=== PATIENT | male | born 1955 | race African-American/Black ===

== ENCOUNTER 2018-04-20 16:26 | Inpatient (IN) | payer MEDICARE, OTHER ==
[~2018-04-20] VITALS: Ht 193 cm; Wt 53.5 kg
[2018-04-20 19:40] VITALS: BP 113/71
[2018-04-20] MEDS ORDERED: ACETAMINOPHEN 325 MG TABLET PO PRN (20:00)
[2018-04-20] MEDS ORDERED: DOCUSATE SODIUM 283 MG/5 ML MINI-ENEMA PR PRN (20:00)
[2018-04-20] MEDS ORDERED: *NON-FORMULARY MED [ENTER DRUG, DOSE, FREQ IN COMMENTS] CLINICAL ONE ×2 (20:30)
[2018-04-20] MEDS ORDERED: SENNA 187 MG TABLET PO SCH (21:00)
[2018-04-20] MEDS: DOCUSATE SODIUM 100 MG CAPSULE PO SCH (22:10)
[2018-04-20] MEDS: GABAPENTIN 300 MG CAPSULE PO SCH (22:11)
[2018-04-20] MEDS: ATORVASTATIN CALCIUM 20 MG TABLET PO SCH (22:12)
[2018-04-20 23:04] LABS: GLUCOMETER DEV NAME(LOC) 2WR.2; GLUCOSE,POINT OF CARE 144 MG/DL (70-110)
[2018-04-20] MEDS: ISOSORBIDE DINITRATE 10 MG TABLET PO SCH (23:41)
[2018-04-20 23:42] VITALS: BP 122/64
[2018-04-20] MEDS: HydrALAZINE HCL 25 MG TABLET PO SCH (23:42)
[2018-04-21] VITALS: BP 122/66
[2018-04-21 06:25] LABS: GLUCOMETER DEV NAME(LOC) 2WR.2; GLUCOSE,POINT OF CARE 109 MG/DL (70-110)
[2018-04-21 07:00] LABS: BASOPHILS % (AUTO) 0.8 % (0.0-2.0); EOSINOPHILS % (AUTO) 2.5 % (1.0-6.0); HEMOGLOBIN 11.7 g/dL (13.5-17.5); LYMPHOCYTES # (AUTO) 2.2 K/uL (1.0-4.8); LYMPHOCYTES % (AUTO) 25.6 % (22.0-44.0); MEAN CORPUSCULAR HGB CONC 33.6 G/dL (31.0-37.0); MEAN CORPUSCULAR VOLUME 81 fL (80-100); MONOCYTES # (AUTO) 0.8 K/uL (0.1-1.0); MONOCYTES % (AUTO) 9.2 % (2.0-9.0); NEUTROPHILS # (AUTO) 5.4 K/uL (1.8-7.7); NEUTROPHILS % (AUTO) 61.9 % (40.0-70.0); PLATELET COUNT (AUTO) 182 K/uL (150-450); RED BLOOD CELL COUNT(AUTO) 4.34 MIL/uL (4.50-5.90); RED CELL DISTRIBUTION WIDTH 21.9 % (11.5-14.5)
[2018-04-21 07:12] LABS: ALBUMIN 2.5 g/dL (3.4-5.0); BILIRUBIN,TOTAL 1.1 mg/dL (0.1-1.0); CALCIUM, TOTAL 8.8 mg/dL (8.8-10.5); CREATININE 1.54 mg/dL (0.60-1.30); TOTAL PROTEIN, SERUM 6.2 g/dL (6.4-8.2)
[2018-04-21 08:00] VITALS: BP 129/79
[2018-04-21] MEDS: MULTIVITAMINS WITH MINERALS, THERAPEUTIC TABLET PO SCH (08:05)
[2018-04-21] MEDS: LOSARTAN POTASSIUM 25 MG TABLET PO SCH (08:05)
[2018-04-21] MEDS: BUMETANIDE 1 MG TABLET PO SCH (08:05)
[2018-04-21] MEDS: ISOSORBIDE DINITRATE 10 MG TABLET PO SCH ×3 (08:05→23:58)
[2018-04-21] MEDS: CARVEDILOL 6.25 MG TABLET PO SCH ×2 (08:05→17:00)
[2018-04-21] MEDS: HydrALAZINE HCL 25 MG TABLET PO SCH ×3 (08:05→23:58)
[2018-04-21] MEDS: DOLUTEGRAVIR SODIUM 50 MG TABLET PO SCH (08:05)
[2018-04-21] MEDS: COBICISTAT PO SCH (08:06)
[2018-04-21] MEDS: GABAPENTIN 300 MG CAPSULE PO SCH ×2 (08:06→20:22)
[2018-04-21] MEDS: TAMSULOSIN HCL 0.4 MG CAPSULE PO SCH (08:06)
[2018-04-21] MEDS: ASPIRIN 81 MG EC TABLET PO SCH (08:06)
[2018-04-21] MEDS: DOCUSATE SODIUM 100 MG CAPSULE PO SCH (08:06)
[2018-04-21] MEDS: DARUNAVIR PO SCH (08:06)
[2018-04-21] MEDS: EMTRICITABINE PO SCH (08:07)
[2018-04-21] MEDS: TENOFOVIR ALAFENAMIDE PO SCH (08:07)
[2018-04-21] MEDS: MARAVIROC 150 MG PO SCH (08:08)
[2018-04-21] MEDS ORDERED: DEXTROSE 50%-WATER 25 GM/50 ML SYRINGE IVP PRN (13:00)
[2018-04-21] MEDS: ASCORBIC ACID 500 MG TABLET PO SCH (13:12)
[2018-04-21 13:19] LABS: GLUCOMETER DEV NAME(LOC) 2WR.2; GLUCOSE,POINT OF CARE 173 MG/DL (70-110)
[2018-04-21] MEDS: ZINC SULFATE 220 MG CAPSULE PO SCH (14:16)
[2018-04-21 14:37] LABS: MAGNESIUM 2.1 mg/dL (1.80-2.40); PHOSPHORUS 4.2 mg/dL (2.5-4.9)
[2018-04-21 16:01] VITALS: BP 100/57
[2018-04-21] MEDS: INSULIN LISPRO 100 UNITS/ML SQ PRN (17:43)
[2018-04-21 18:59] LABS: GLUCOMETER DEV NAME(LOC) 2WR.1; GLUCOSE,POINT OF CARE 228 MG/DL (70-110)
[2018-04-21] MEDS: SENNA 187 MG TABLET PO SCH (20:22)
[2018-04-21] MEDS: DOCUSATE SODIUM 250 MG CAPSULE PO SCH (20:22)
[2018-04-21] MEDS: ATORVASTATIN CALCIUM 20 MG TABLET PO SCH (20:22)
[2018-04-22] VITALS (8 sets, daily range): BP systolic 80–111; BP diastolic 50–68
[2018-04-22 06:14] LABS: GLUCOMETER DEV NAME(LOC) 2WR.2; GLUCOSE,POINT OF CARE 129 MG/DL (70-110)
[2018-04-22] MEDS: HydrALAZINE HCL 25 MG TABLET PO SCH ×3 (08:14→20:10)
[2018-04-22] MEDS: TAMSULOSIN HCL 0.4 MG CAPSULE PO SCH (08:14)
[2018-04-22] MEDS: ASPIRIN 81 MG EC TABLET PO SCH (08:14)
[2018-04-22] MEDS: DOLUTEGRAVIR SODIUM 50 MG TABLET PO SCH (08:14)
[2018-04-22] MEDS: GABAPENTIN 300 MG CAPSULE PO SCH ×2 (08:14→20:11)
[2018-04-22] MEDS: BUMETANIDE 1 MG TABLET PO SCH (08:14)
[2018-04-22] MEDS: MULTIVITAMINS WITH MINERALS, THERAPEUTIC TABLET PO SCH (08:14)
[2018-04-22] MEDS: ASCORBIC ACID 500 MG TABLET PO SCH (08:14)
[2018-04-22] MEDS: ZINC SULFATE 220 MG CAPSULE PO SCH (08:14)
[2018-04-22] MEDS: ISOSORBIDE DINITRATE 10 MG TABLET PO SCH ×3 (08:14→20:10)
[2018-04-22] MEDS: CARVEDILOL 6.25 MG TABLET PO SCH ×2 (08:14→15:46)
[2018-04-22] MEDS: POLYETHYLENE GLYCOL 3350 17 GM PACKET PO SCH (08:15)
[2018-04-22] MEDS: MARAVIROC 150 MG PO SCH (08:15)
[2018-04-22] MEDS: DARUNAVIR PO SCH (08:15)
[2018-04-22] MEDS: DOCUSATE SODIUM 250 MG CAPSULE PO SCH ×2 (08:15→20:11)
[2018-04-22] MEDS: COBICISTAT PO SCH (08:15)
[2018-04-22] MEDS: LOSARTAN POTASSIUM 25 MG TABLET PO SCH (09:00)
[2018-04-22] MEDS: EMTRICITABINE PO SCH (10:39)
[2018-04-22] MEDS: TENOFOVIR ALAFENAMIDE PO SCH (10:39)
[2018-04-22] MEDS ORDERED: MAGNESIUM HYDROXIDE SUSPENSION 30 ML UDCUP PO PRN (11:30)
[2018-04-22] MEDS: FERROUS GLUCONATE 324 MG TABLET PO SCH (12:53)
[2018-04-22] MEDS ORDERED: HydrALAZINE HCL 25 MG TABLET PO SCH (16:00)
[2018-04-22 17:45] LABS: GLUCOMETER DEV NAME(LOC) 2WR.2; GLUCOSE,POINT OF CARE 270 MG/DL (70-110)
[2018-04-22] MEDS: INSULIN LISPRO 100 UNITS/ML SQ PRN (17:51)
[2018-04-22] MEDS: ATORVASTATIN CALCIUM 20 MG TABLET PO SCH (20:11)
[2018-04-22] MEDS: SENNA 187 MG TABLET PO SCH (20:11)
[2018-04-23] VITALS: BP 101/53
[2018-04-23] MEDS ORDERED: ASPI-1182 PO (01:39)
[2018-04-23] MEDS ORDERED: DOLU50TA PO (01:39)
[2018-04-23] MEDS ORDERED: EMTR1TAB13 PO (01:39)
[2018-04-23] MEDS ORDERED: DARU1TAB PO (01:39)
[2018-04-23] MEDS ORDERED: AMLO-512 PO (01:39)
[2018-04-23] MEDS ORDERED: TAMS0.4C32 PO (01:39)
[2018-04-23] MEDS ORDERED: LOSA1TAB37 PO (01:39)
[2018-04-23] MEDS ORDERED: MARA150T PO (01:39)
[2018-04-23 06:45] LABS: GLUCOMETER DEV NAME(LOC) 2WR.2; GLUCOSE,POINT OF CARE 132 MG/DL (70-110)
[2018-04-23] MEDS: CARVEDILOL 6.25 MG TABLET PO SCH ×2 (07:30→16:47)
[2018-04-23 07:40] VITALS: BP 124/80
[2018-04-23] MEDS: DOLUTEGRAVIR SODIUM 50 MG TABLET PO SCH (08:14)
[2018-04-23] MEDS: ZINC SULFATE 220 MG CAPSULE PO SCH (08:14)
[2018-04-23] MEDS: BUMETANIDE 1 MG TABLET PO SCH (08:14)
[2018-04-23] MEDS: COBICISTAT PO SCH (08:14)
[2018-04-23] MEDS: DARUNAVIR PO SCH (08:14)
[2018-04-23] MEDS: DOCUSATE SODIUM 250 MG CAPSULE PO SCH ×2 (08:15→20:13)
[2018-04-23] MEDS: HydrALAZINE HCL 25 MG TABLET PO SCH ×4 (08:15→21:00)
[2018-04-23] MEDS: GABAPENTIN 300 MG CAPSULE PO SCH ×2 (08:16→20:13)
[2018-04-23] MEDS: ASCORBIC ACID 500 MG TABLET PO SCH (08:17)
[2018-04-23] MEDS: FERROUS GLUCONATE 324 MG TABLET PO SCH (08:17)
[2018-04-23] MEDS: ISOSORBIDE DINITRATE 10 MG TABLET PO SCH ×3 (08:17→20:13)
[2018-04-23] MEDS: TAMSULOSIN HCL 0.4 MG CAPSULE PO SCH (08:17)
[2018-04-23] MEDS: MULTIVITAMINS WITH MINERALS, THERAPEUTIC TABLET PO SCH (08:18)
[2018-04-23] MEDS: ASPIRIN 81 MG EC TABLET PO SCH (08:18)
[2018-04-23] MEDS: MARAVIROC 150 MG PO SCH (08:19)
[2018-04-23] MEDS: EMTRICITABINE PO SCH (08:20)
[2018-04-23] MEDS: TENOFOVIR ALAFENAMIDE PO SCH (08:20)
[2018-04-23] MEDS: POLYETHYLENE GLYCOL 3350 17 GM PACKET PO SCH (08:42)
[2018-04-23] MEDS ORDERED: DENTURE ADHESIVE 68 GM CREAM DT PRN (11:15)
[2018-04-23 16:09] VITALS: BP 104/56
[2018-04-23 17:34] LABS: GLUCOMETER DEV NAME(LOC) 2WR.1; GLUCOSE,POINT OF CARE 173 MG/DL (70-110)
[2018-04-23] MEDS: INSULIN LISPRO 100 UNITS/ML SQ PRN (17:43)
[2018-04-23 20:09] VITALS: BP 117/63
[2018-04-23] MEDS: SENNA 187 MG TABLET PO SCH (20:13)
[2018-04-23] MEDS: ATORVASTATIN CALCIUM 20 MG TABLET PO SCH (20:13)
[2018-04-23 21:16] VITALS: BP 99/57
[2018-04-24 05:00] VITALS: BP 120/61
[2018-04-24 05:49] LABS: GLUCOMETER DEV NAME(LOC) 2WR.1; GLUCOSE,POINT OF CARE 127 MG/DL (70-110)
[2018-04-24 07:48] VITALS: BP 129/70
[2018-04-24] MEDS: GABAPENTIN 300 MG CAPSULE PO SCH ×2 (08:01→20:37)
[2018-04-24] MEDS: DOCUSATE SODIUM 250 MG CAPSULE PO SCH ×2 (08:01→20:37)
[2018-04-24] MEDS: ASCORBIC ACID 500 MG TABLET PO SCH (08:02)
[2018-04-24] MEDS: ZINC SULFATE 220 MG CAPSULE PO SCH (08:02)
[2018-04-24] MEDS: MULTIVITAMINS WITH MINERALS, THERAPEUTIC TABLET PO SCH (08:02)
[2018-04-24] MEDS: FERROUS GLUCONATE 324 MG TABLET PO SCH (08:05)
[2018-04-24] MEDS: BUMETANIDE 1 MG TABLET PO SCH (08:05)
[2018-04-24] MEDS: ISOSORBIDE DINITRATE 10 MG TABLET PO SCH ×3 (08:05→20:37)
[2018-04-24] MEDS: TAMSULOSIN HCL 0.4 MG CAPSULE PO SCH (08:05)
[2018-04-24] MEDS: CARVEDILOL 6.25 MG TABLET PO SCH ×2 (08:05→17:00)
[2018-04-24] MEDS: MARAVIROC 150 MG PO SCH (08:06)
[2018-04-24] MEDS: DOLUTEGRAVIR SODIUM 50 MG TABLET PO SCH (08:06)
[2018-04-24] MEDS: EMTRICITABINE PO SCH (08:09)
[2018-04-24] MEDS: TENOFOVIR ALAFENAMIDE PO SCH (08:09)
[2018-04-24] MEDS: POLYETHYLENE GLYCOL 3350 17 GM PACKET PO SCH (08:10)
[2018-04-24] MEDS: HydrALAZINE HCL 25 MG TABLET PO SCH ×3 (08:10→20:36)
[2018-04-24] MEDS: ASPIRIN 81 MG EC TABLET PO SCH (08:13)
[2018-04-24] MEDS: COBICISTAT PO SCH (08:15)
[2018-04-24] MEDS: DARUNAVIR PO SCH (08:15)
[2018-04-24] MEDS: CHLORHEXIDINE GLUCONATE 4% 118 ML TOPICAL LIQUID TP SCH (08:16)
[2018-04-24 16:09] VITALS: BP 98/52
[2018-04-24] MEDS: INSULIN LISPRO 100 UNITS/ML SQ PRN (17:37)
[2018-04-24 17:39] LABS: GLUCOMETER DEV NAME(LOC) 2WR.2; GLUCOSE,POINT OF CARE 171 MG/DL (70-110)
[2018-04-24 20:34] VITALS: BP 93/59
[2018-04-24] MEDS: SENNA 187 MG TABLET PO SCH (20:37)
[2018-04-24] MEDS: ATORVASTATIN CALCIUM 20 MG TABLET PO SCH (20:37)
[2018-04-25 04:45] VITALS: BP 132/73
[2018-04-25 06:25] LABS: GLUCOMETER DEV NAME(LOC) 2WR.1; GLUCOSE,POINT OF CARE 123 MG/DL (70-110)
[2018-04-25 07:30] VITALS: BP 145/76
[2018-04-25] MEDS: TAMSULOSIN HCL 0.4 MG CAPSULE PO SCH (08:17)
[2018-04-25] MEDS: MULTIVITAMINS WITH MINERALS, THERAPEUTIC TABLET PO SCH (08:17)
[2018-04-25] MEDS: BUMETANIDE 1 MG TABLET PO SCH (08:17)
[2018-04-25] MEDS: EMTRICITABINE PO SCH (08:17)
[2018-04-25] MEDS: ZINC SULFATE 220 MG CAPSULE PO SCH (08:17)
[2018-04-25] MEDS: TENOFOVIR ALAFENAMIDE PO SCH (08:17)
[2018-04-25] MEDS: DOLUTEGRAVIR SODIUM 50 MG TABLET PO SCH (08:17)
[2018-04-25] MEDS: MARAVIROC 150 MG PO SCH (08:17)
[2018-04-25] MEDS: FERROUS GLUCONATE 324 MG TABLET PO SCH (08:18)
[2018-04-25] MEDS: ISOSORBIDE DINITRATE 10 MG TABLET PO SCH ×3 (08:18→20:52)
[2018-04-25] MEDS: GABAPENTIN 300 MG CAPSULE PO SCH ×2 (08:18→20:51)
[2018-04-25] MEDS: DOCUSATE SODIUM 250 MG CAPSULE PO SCH ×2 (08:18→20:52)
[2018-04-25] MEDS: ASCORBIC ACID 500 MG TABLET PO SCH (08:18)
[2018-04-25] MEDS: ASPIRIN 81 MG EC TABLET PO SCH (08:18)
[2018-04-25] MEDS: CARVEDILOL 6.25 MG TABLET PO SCH ×2 (08:18→17:00)
[2018-04-25] MEDS: DARUNAVIR PO SCH (08:19)
[2018-04-25] MEDS: POLYETHYLENE GLYCOL 3350 17 GM PACKET PO SCH (08:19)
[2018-04-25] MEDS: COBICISTAT PO SCH (08:19)
[2018-04-25] MEDS: HydrALAZINE HCL 25 MG TABLET PO SCH ×3 (09:00→20:54)
[2018-04-25 12:35] LABS: GLUCOMETER DEV NAME(LOC) 2WR.1; GLUCOSE,POINT OF CARE 241 MG/DL (70-110)
[2018-04-25] MEDS: INSULIN LISPRO 100 UNITS/ML SQ PRN ×2 (12:46→18:42)
[2018-04-25] MEDS: COLD CREAM, SKIN EMOLLIENT 340 GM JAR TP SCH ×2 (14:09→20:54)
[2018-04-25] MEDS: CHLORHEXIDINE GLUCONATE 4% 118 ML TOPICAL LIQUID TP SCH (14:09)
[2018-04-25 16:06] VITALS: BP 95/50
[2018-04-25 17:30] VITALS: BP 108/53
[2018-04-25 17:40] LABS: GLUCOMETER DEV NAME(LOC) 2WR.2; GLUCOSE,POINT OF CARE 190 MG/DL (70-110)
[2018-04-25] MEDS: SENNA 187 MG TABLET PO SCH (20:52)
[2018-04-25] MEDS: ATORVASTATIN CALCIUM 20 MG TABLET PO SCH (20:52)
[2018-04-26 03:00] VITALS: BP 119/54
[2018-04-26 06:04] LABS: GLUCOMETER DEV NAME(LOC) 2WR.2; GLUCOSE,POINT OF CARE 155 MG/DL (70-110)
[2018-04-26 07:18] VITALS: BP 130/69
[2018-04-26] MEDS: MARAVIROC 150 MG PO SCH (08:05)
[2018-04-26] MEDS: COBICISTAT PO SCH (08:06)
[2018-04-26] MEDS: EMTRICITABINE PO SCH (08:06)
[2018-04-26] MEDS: TENOFOVIR ALAFENAMIDE PO SCH (08:06)
[2018-04-26] MEDS: ISOSORBIDE DINITRATE 10 MG TABLET PO SCH ×3 (08:06→20:25)
[2018-04-26] MEDS: MULTIVITAMINS WITH MINERALS, THERAPEUTIC TABLET PO SCH (08:06)
[2018-04-26] MEDS: DOLUTEGRAVIR SODIUM 50 MG TABLET PO SCH (08:06)
[2018-04-26] MEDS: CARVEDILOL 6.25 MG TABLET PO SCH ×2 (08:06→16:21)
[2018-04-26] MEDS: DARUNAVIR PO SCH (08:06)
[2018-04-26] MEDS: BUMETANIDE 1 MG TABLET PO SCH (08:06)
[2018-04-26] MEDS: DOCUSATE SODIUM 250 MG CAPSULE PO SCH ×2 (08:06→20:24)
[2018-04-26] MEDS: TAMSULOSIN HCL 0.4 MG CAPSULE PO SCH (08:06)
[2018-04-26] MEDS: ZINC SULFATE 220 MG CAPSULE PO SCH (08:07)
[2018-04-26] MEDS: ASCORBIC ACID 500 MG TABLET PO SCH (08:07)
[2018-04-26] MEDS: ASPIRIN 81 MG EC TABLET PO SCH (08:07)
[2018-04-26] MEDS: FERROUS GLUCONATE 324 MG TABLET PO SCH (08:07)
[2018-04-26] MEDS: COLD CREAM, SKIN EMOLLIENT 340 GM JAR TP SCH ×2 (08:08→20:27)
[2018-04-26] MEDS: CHLORHEXIDINE GLUCONATE 4% 118 ML TOPICAL LIQUID TP SCH (08:08)
[2018-04-26] MEDS: GABAPENTIN 300 MG CAPSULE PO SCH ×2 (08:09→20:24)
[2018-04-26] MEDS: HydrALAZINE HCL 25 MG TABLET PO SCH (08:14)
[2018-04-26] MEDS: INSULIN LISPRO 100 UNITS/ML SQ PRN ×2 (08:40→16:26)
[2018-04-26] MEDS ORDERED: HydrALAZINE HCL 25 MG TABLET PO PRN (12:30)
[2018-04-26 15:30] VITALS: BP 115/53
[2018-04-26 16:20] VITALS: BP 113/62
[2018-04-26 17:49] LABS: GLUCOMETER DEV NAME(LOC) 2WR.1; GLUCOSE,POINT OF CARE 195 MG/DL (70-110)
[2018-04-26] MEDS: SENNA 187 MG TABLET PO SCH (20:24)
[2018-04-26] MEDS: ATORVASTATIN CALCIUM 20 MG TABLET PO SCH (20:24)
[2018-04-27] VITALS: BP 103/54
[2018-04-27 04:55] LABS: GLUCOMETER DEV NAME(LOC) 2WR.1; GLUCOSE,POINT OF CARE 231 MG/DL (70-110)
[2018-04-27 05:55] LABS: GLUCOMETER DEV NAME(LOC) 2WR.2; GLUCOSE,POINT OF CARE 135 MG/DL (70-110)
[2018-04-27 07:15] VITALS: BP 103/59
[2018-04-27] MEDS: CARVEDILOL 6.25 MG TABLET PO SCH ×2 (07:30→17:00)
[2018-04-27] MEDS: COBICISTAT PO SCH (07:56)
[2018-04-27] MEDS: DARUNAVIR PO SCH (07:56)
[2018-04-27] MEDS: FERROUS GLUCONATE 324 MG TABLET PO SCH (07:57)
[2018-04-27] MEDS: ZINC SULFATE 220 MG CAPSULE PO SCH (07:58)
[2018-04-27] MEDS: DOCUSATE SODIUM 250 MG CAPSULE PO SCH ×2 (07:59→20:33)
[2018-04-27] MEDS: BUMETANIDE 1 MG TABLET PO SCH (07:59)
[2018-04-27] MEDS: ASCORBIC ACID 500 MG TABLET PO SCH (08:01)
[2018-04-27] MEDS: TAMSULOSIN HCL 0.4 MG CAPSULE PO SCH (08:01)
[2018-04-27] MEDS: DOLUTEGRAVIR SODIUM 50 MG TABLET PO SCH (08:02)
[2018-04-27] MEDS: MULTIVITAMINS WITH MINERALS, THERAPEUTIC TABLET PO SCH (08:02)
[2018-04-27] MEDS: GABAPENTIN 300 MG CAPSULE PO SCH ×2 (08:02→20:33)
[2018-04-27] MEDS: ASPIRIN 81 MG EC TABLET PO SCH (08:04)
[2018-04-27 08:15] VITALS: BP 103/59
[2018-04-27] MEDS: CHLORHEXIDINE GLUCONATE 4% 118 ML TOPICAL LIQUID TP SCH (08:23)
[2018-04-27] MEDS: COLD CREAM, SKIN EMOLLIENT 340 GM JAR TP SCH ×2 (09:00→20:33)
[2018-04-27] MEDS: EMTRICITABINE PO SCH (09:18)
[2018-04-27] MEDS: TENOFOVIR ALAFENAMIDE PO SCH (09:18)
[2018-04-27] MEDS: MARAVIROC 150 MG PO SCH (09:21)
[2018-04-27] MEDS: ISOSORBIDE DINITRATE 10 MG TABLET PO SCH ×3 (09:41→20:33)
[2018-04-27 12:40] LABS: GLUCOMETER DEV NAME(LOC) 2WR.2; GLUCOSE,POINT OF CARE 149 MG/DL (70-110)
[2018-04-27] MEDS: INSULIN LISPRO 100 UNITS/ML SQ PRN ×3 (12:56→21:07)
[2018-04-27 15:00] VITALS: BP 133/62
[2018-04-27 17:25] VITALS: BP 137/95
[2018-04-27 18:44] LABS: GLUCOMETER DEV NAME(LOC) 2WR.1; GLUCOSE,POINT OF CARE 202 MG/DL (70-110)
[2018-04-27] MEDS: ATORVASTATIN CALCIUM 20 MG TABLET PO SCH (20:33)
[2018-04-27] MEDS: SENNA 187 MG TABLET PO SCH (20:33)
[2018-04-27 21:59] LABS: GLUCOMETER DEV NAME(LOC) 2WR.2; GLUCOSE,POINT OF CARE 253 MG/DL (70-110)
[2018-04-28 04:05] VITALS: BP 106/53
[2018-04-28 05:54] LABS: GLUCOMETER DEV NAME(LOC) 2WR.2; GLUCOSE,POINT OF CARE 138 MG/DL (70-110)
[2018-04-28 07:27] VITALS: BP 113/53
[2018-04-28] MEDS: COBICISTAT PO SCH (07:47)
[2018-04-28] MEDS: DARUNAVIR PO SCH (07:47)
[2018-04-28] MEDS: FERROUS GLUCONATE 324 MG TABLET PO SCH (07:48)
[2018-04-28] MEDS: ZINC SULFATE 220 MG CAPSULE PO SCH (07:48)
[2018-04-28] MEDS: TAMSULOSIN HCL 0.4 MG CAPSULE PO SCH (07:48)
[2018-04-28] MEDS: BUMETANIDE 1 MG TABLET PO SCH (07:48)
[2018-04-28] MEDS: MARAVIROC 150 MG PO SCH (07:48)
[2018-04-28] MEDS: ISOSORBIDE DINITRATE 10 MG TABLET PO SCH ×3 (07:49→21:26)
[2018-04-28] MEDS: DOCUSATE SODIUM 250 MG CAPSULE PO SCH ×2 (07:49→20:24)
[2018-04-28] MEDS: ASCORBIC ACID 500 MG TABLET PO SCH (07:49)
[2018-04-28] MEDS: DOLUTEGRAVIR SODIUM 50 MG TABLET PO SCH (07:49)
[2018-04-28] MEDS: MULTIVITAMINS WITH MINERALS, THERAPEUTIC TABLET PO SCH (07:49)
[2018-04-28] MEDS: CARVEDILOL 6.25 MG TABLET PO SCH ×2 (07:49→16:49)
[2018-04-28] MEDS: GABAPENTIN 300 MG CAPSULE PO SCH ×2 (07:49→20:25)
[2018-04-28] MEDS: ASPIRIN 81 MG EC TABLET PO SCH (07:49)
[2018-04-28] MEDS: TENOFOVIR ALAFENAMIDE PO SCH (07:50)
[2018-04-28] MEDS: EMTRICITABINE PO SCH (07:50)
[2018-04-28] MEDS: COLD CREAM, SKIN EMOLLIENT 340 GM JAR TP SCH ×2 (07:50→20:31)
[2018-04-28] MEDS: CHLORHEXIDINE GLUCONATE 4% 118 ML TOPICAL LIQUID TP SCH (10:37)
[2018-04-28] MEDS: INSULIN LISPRO 100 UNITS/ML SQ PRN ×3 (12:44→21:40)
[2018-04-28 15:44] LABS: GLUCOMETER DEV NAME(LOC) 2WR.1; GLUCOSE,POINT OF CARE 197 MG/DL (70-110)
[2018-04-28 16:10] VITALS: BP 106/58
[2018-04-28 16:46] VITALS: BP 107/56
[2018-04-28 17:30] LABS: GLUCOMETER DEV NAME(LOC) 2WR.1; GLUCOSE,POINT OF CARE 159 MG/DL (70-110)
[2018-04-28] MEDS: SENNA 187 MG TABLET PO SCH (20:25)
[2018-04-28] MEDS: ATORVASTATIN CALCIUM 20 MG TABLET PO SCH (20:25)
[2018-04-28 21:49] LABS: GLUCOMETER DEV NAME(LOC) 2WR.1; GLUCOSE,POINT OF CARE 238 MG/DL (70-110)
[2018-04-29 05:03] VITALS: BP 109/57
[2018-04-29 06:29] LABS: GLUCOMETER DEV NAME(LOC) 2WR.1; GLUCOSE,POINT OF CARE 139 MG/DL (70-110)
[2018-04-29 07:20] VITALS: BP 103/53
[2018-04-29] MEDS: CARVEDILOL 6.25 MG TABLET PO SCH ×2 (07:30→16:48)
[2018-04-29] MEDS: DOLUTEGRAVIR SODIUM 50 MG TABLET PO SCH (08:38)
[2018-04-29] MEDS: FERROUS GLUCONATE 324 MG TABLET PO SCH (08:38)
[2018-04-29] MEDS: ZINC SULFATE 220 MG CAPSULE PO SCH (08:38)
[2018-04-29] MEDS: MARAVIROC 150 MG PO SCH (08:38)
[2018-04-29] MEDS: BUMETANIDE 1 MG TABLET PO SCH (08:39)
[2018-04-29] MEDS: MULTIVITAMINS WITH MINERALS, THERAPEUTIC TABLET PO SCH (08:39)
[2018-04-29] MEDS: GABAPENTIN 300 MG CAPSULE PO SCH ×2 (08:39→20:05)
[2018-04-29] MEDS: ASPIRIN 81 MG EC TABLET PO SCH (08:39)
[2018-04-29] MEDS: DOCUSATE SODIUM 250 MG CAPSULE PO SCH ×2 (08:39→20:05)
[2018-04-29] MEDS: ISOSORBIDE DINITRATE 10 MG TABLET PO SCH ×3 (08:39→20:05)
[2018-04-29] MEDS: ASCORBIC ACID 500 MG TABLET PO SCH (08:39)
[2018-04-29] MEDS: CHLORHEXIDINE GLUCONATE 4% 118 ML TOPICAL LIQUID TP SCH (08:40)
[2018-04-29] MEDS: COLD CREAM, SKIN EMOLLIENT 340 GM JAR TP SCH ×2 (08:40→20:12)
[2018-04-29] MEDS: TAMSULOSIN HCL 0.4 MG CAPSULE PO SCH (08:44)
[2018-04-29] MEDS: COBICISTAT PO SCH (09:36)
[2018-04-29] MEDS: DARUNAVIR PO SCH (09:36)
[2018-04-29] MEDS: TENOFOVIR ALAFENAMIDE PO SCH (09:37)
[2018-04-29] MEDS: EMTRICITABINE PO SCH (09:37)
[2018-04-29] MEDS: INSULIN LISPRO 100 UNITS/ML SQ PRN ×3 (12:41→20:12)
[2018-04-29 13:14] LABS: GLUCOMETER DEV NAME(LOC) 2WR.1; GLUCOSE,POINT OF CARE 211 MG/DL (70-110)
[2018-04-29 15:38] VITALS: BP 99/43
[2018-04-29 16:45] VITALS: BP 108/54
[2018-04-29 16:59] LABS: GLUCOMETER DEV NAME(LOC) 2WR.2; GLUCOSE,POINT OF CARE 178 MG/DL (70-110)
[2018-04-29 20:04] VITALS: BP 106/58
[2018-04-29] MEDS: ATORVASTATIN CALCIUM 20 MG TABLET PO SCH (20:05)
[2018-04-29] MEDS: SENNA 187 MG TABLET PO SCH (20:05)
[2018-04-29 21:13] LABS: GLUCOMETER DEV NAME(LOC) 2WR.2; GLUCOSE,POINT OF CARE 177 MG/DL (70-110)
[2018-04-30 03:38] VITALS: BP 121/59
[2018-04-30 06:29] LABS: GLUCOMETER DEV NAME(LOC) 2WR.1; GLUCOSE,POINT OF CARE 158 MG/DL (70-110)
[2018-04-30 07:31] VITALS: BP 128/59
[2018-04-30] MEDS: COLD CREAM, SKIN EMOLLIENT 340 GM JAR TP SCH ×2 (07:47→21:00)
[2018-04-30] MEDS: CHLORHEXIDINE GLUCONATE 4% 118 ML TOPICAL LIQUID TP SCH (07:47)
[2018-04-30] MEDS: COBICISTAT PO SCH (07:48)
[2018-04-30] MEDS: MARAVIROC 150 MG PO SCH (07:48)
[2018-04-30] MEDS: DARUNAVIR PO SCH (07:48)
[2018-04-30] MEDS: FERROUS GLUCONATE 324 MG TABLET PO SCH (07:48)
[2018-04-30] MEDS: CARVEDILOL 6.25 MG TABLET PO SCH ×2 (07:49→16:43)
[2018-04-30] MEDS: ASCORBIC ACID 500 MG TABLET PO SCH (07:49)
[2018-04-30] MEDS: DOLUTEGRAVIR SODIUM 50 MG TABLET PO SCH (07:49)
[2018-04-30] MEDS: ASPIRIN 81 MG EC TABLET PO SCH (07:49)
[2018-04-30] MEDS: TAMSULOSIN HCL 0.4 MG CAPSULE PO SCH (07:49)
[2018-04-30] MEDS: ISOSORBIDE DINITRATE 10 MG TABLET PO SCH ×3 (07:49→21:14)
[2018-04-30] MEDS: BUMETANIDE 1 MG TABLET PO SCH (07:49)
[2018-04-30] MEDS: ZINC SULFATE 220 MG CAPSULE PO SCH (07:49)
[2018-04-30] MEDS: DOCUSATE SODIUM 250 MG CAPSULE PO SCH ×2 (07:49→21:14)
[2018-04-30] MEDS: GABAPENTIN 300 MG CAPSULE PO SCH ×2 (07:49→21:14)
[2018-04-30] MEDS: MULTIVITAMINS WITH MINERALS, THERAPEUTIC TABLET PO SCH (07:49)
[2018-04-30] MEDS: TENOFOVIR ALAFENAMIDE PO SCH (07:50)
[2018-04-30] MEDS: EMTRICITABINE PO SCH (07:50)
[2018-04-30] MEDS: INSULIN LISPRO 100 UNITS/ML SQ PRN ×4 (08:25→21:36)
[2018-04-30 13:04] LABS: GLUCOMETER DEV NAME(LOC) 2WR.1; GLUCOSE,POINT OF CARE 146 MG/DL (70-110)
[2018-04-30 15:27] VITALS: BP 105/60
[2018-04-30 16:45] VITALS: BP 101/54
[2018-04-30] MEDS: SENNA 187 MG TABLET PO SCH (21:14)
[2018-04-30] MEDS: ATORVASTATIN CALCIUM 20 MG TABLET PO SCH (21:15)
[2018-05-01] VITALS (7 sets, daily range): BP systolic 84–125; BP diastolic 50–65
[2018-05-01] MEDS: MARAVIROC 150 MG PO SCH (08:06)
[2018-05-01] MEDS: BUMETANIDE 1 MG TABLET PO SCH (08:07)
[2018-05-01] MEDS: ASCORBIC ACID 500 MG TABLET PO SCH (08:07)
[2018-05-01] MEDS: EMTRICITABINE PO SCH (08:07)
[2018-05-01] MEDS: COBICISTAT PO SCH (08:07)
[2018-05-01] MEDS: DARUNAVIR PO SCH (08:07)
[2018-05-01] MEDS: FERROUS GLUCONATE 324 MG TABLET PO SCH (08:07)
[2018-05-01] MEDS: ZINC SULFATE 220 MG CAPSULE PO SCH (08:07)
[2018-05-01] MEDS: MULTIVITAMINS WITH MINERALS, THERAPEUTIC TABLET PO SCH (08:07)
[2018-05-01] MEDS: TENOFOVIR ALAFENAMIDE PO SCH (08:07)
[2018-05-01] MEDS: ASPIRIN 81 MG EC TABLET PO SCH (08:08)
[2018-05-01] MEDS: ISOSORBIDE DINITRATE 10 MG TABLET PO SCH ×3 (08:08→20:34)
[2018-05-01] MEDS: DOLUTEGRAVIR SODIUM 50 MG TABLET PO SCH (08:08)
[2018-05-01] MEDS: TAMSULOSIN HCL 0.4 MG CAPSULE PO SCH (08:08)
[2018-05-01] MEDS: CARVEDILOL 6.25 MG TABLET PO SCH ×2 (08:08→17:00)
[2018-05-01] MEDS: COLD CREAM, SKIN EMOLLIENT 340 GM JAR TP SCH ×2 (08:09→20:36)
[2018-05-01] MEDS: DOCUSATE SODIUM 250 MG CAPSULE PO SCH ×2 (08:10→20:35)
[2018-05-01] MEDS: GABAPENTIN 300 MG CAPSULE PO SCH ×2 (08:10→20:34)
[2018-05-01] MEDS: POLYETHYLENE GLYCOL 3350 17 GM PACKET PO PRN (08:12)
[2018-05-01] MEDS: INSULIN LISPRO 100 UNITS/ML SQ PRN ×3 (08:17→20:47)
[2018-05-01 13:59] LABS: GLUCOMETER DEV NAME(LOC) 2WR.1; GLUCOSE,POINT OF CARE 153 MG/DL (70-110)
[2018-05-01 14:00] LABS: GLUCOMETER DEV NAME(LOC) 2WR.2; GLUCOSE,POINT OF CARE 230 MG/DL (70-110)
[2018-05-01 14:01] LABS: GLUCOMETER DEV NAME(LOC) 2WR.2; GLUCOSE,POINT OF CARE 145 MG/DL (70-110)
[2018-05-01 14:02] LABS: GLUCOMETER DEV NAME(LOC) 2WR.1; GLUCOSE,POINT OF CARE 118 MG/DL (70-110)
[2018-05-01] MEDS: SENNA 187 MG TABLET PO SCH (20:35)
[2018-05-01] MEDS: ATORVASTATIN CALCIUM 20 MG TABLET PO SCH (20:35)
[2018-05-02 05:00] VITALS: BP 110/59
[2018-05-02 07:24] VITALS: BP 117/79
[2018-05-02] MEDS: ZINC SULFATE 220 MG CAPSULE PO SCH (08:11)
[2018-05-02] MEDS: FERROUS GLUCONATE 324 MG TABLET PO SCH (08:11)
[2018-05-02] MEDS: DOLUTEGRAVIR SODIUM 50 MG TABLET PO SCH (08:11)
[2018-05-02] MEDS: CARVEDILOL 6.25 MG TABLET PO SCH ×2 (08:12→16:17)
[2018-05-02] MEDS: BUMETANIDE 1 MG TABLET PO SCH (08:12)
[2018-05-02] MEDS: ASPIRIN 81 MG EC TABLET PO SCH (08:12)
[2018-05-02] MEDS: GABAPENTIN 300 MG CAPSULE PO SCH ×2 (08:12→20:29)
[2018-05-02] MEDS: TAMSULOSIN HCL 0.4 MG CAPSULE PO SCH (08:12)
[2018-05-02] MEDS: MULTIVITAMINS WITH MINERALS, THERAPEUTIC TABLET PO SCH (08:12)
[2018-05-02] MEDS: DOCUSATE SODIUM 250 MG CAPSULE PO SCH ×2 (08:12→20:29)
[2018-05-02] MEDS: MARAVIROC 150 MG PO SCH (08:13)
[2018-05-02] MEDS: DARUNAVIR PO SCH (08:13)
[2018-05-02] MEDS: ASCORBIC ACID 500 MG TABLET PO SCH (08:13)
[2018-05-02] MEDS: ISOSORBIDE DINITRATE 10 MG TABLET PO SCH ×3 (08:13→20:29)
[2018-05-02] MEDS: COBICISTAT PO SCH (08:13)
[2018-05-02] MEDS: TENOFOVIR ALAFENAMIDE PO SCH (08:14)
[2018-05-02] MEDS: EMTRICITABINE PO SCH (08:14)
[2018-05-02] MEDS: COLD CREAM, SKIN EMOLLIENT 340 GM JAR TP SCH ×2 (08:18→20:29)
[2018-05-02] MEDS: INSULIN LISPRO 100 UNITS/ML SQ PRN ×4 (08:35→20:39)
[2018-05-02 08:51] LABS: GLUCOMETER DEV NAME(LOC) 2WR.2; GLUCOSE,POINT OF CARE 205 MG/DL (70-110)
[2018-05-02 08:51] LABS: GLUCOMETER DEV NAME(LOC) 2WR.2; GLUCOSE,POINT OF CARE 144 MG/DL (70-110)
[2018-05-02 08:56] LABS: GLUCOMETER DEV NAME(LOC) 2WR.2; GLUCOSE,POINT OF CARE 169 MG/DL (70-110)
[2018-05-02 09:56] VITALS: BP 117/79
[2018-05-02 12:24] LABS: GLUCOMETER DEV NAME(LOC) 2WR.1; GLUCOSE,POINT OF CARE 183 MG/DL (70-110)
[2018-05-02 16:02] VITALS: BP 96/58
[2018-05-02 16:23] VITALS: BP 113/54
[2018-05-02 16:34] LABS: GLUCOMETER DEV NAME(LOC) 2WR.1; GLUCOSE,POINT OF CARE 163 MG/DL (70-110)
[2018-05-02] MEDS: ATORVASTATIN CALCIUM 20 MG TABLET PO SCH (20:29)
[2018-05-02] MEDS: SENNA 187 MG TABLET PO SCH (20:29)
[2018-05-02 20:47] VITALS: BP 104/56
[2018-05-02 21:09] LABS: GLUCOMETER DEV NAME(LOC) 2WR.2; GLUCOSE,POINT OF CARE 189 MG/DL (70-110)
[2018-05-03 05:31] VITALS: BP 115/58
[2018-05-03 05:50] LABS: GLUCOMETER DEV NAME(LOC) 2WR.2; GLUCOSE,POINT OF CARE 149 MG/DL (70-110)
[2018-05-03] MEDS: ASCORBIC ACID 500 MG TABLET PO SCH (07:53)
[2018-05-03] MEDS: MULTIVITAMINS WITH MINERALS, THERAPEUTIC TABLET PO SCH (07:53)
[2018-05-03] MEDS: ZINC SULFATE 220 MG CAPSULE PO SCH (07:53)
[2018-05-03] MEDS: DOCUSATE SODIUM 250 MG CAPSULE PO SCH ×2 (07:53→20:07)
[2018-05-03] MEDS: ASPIRIN 81 MG EC TABLET PO SCH (07:54)
[2018-05-03] MEDS: BUMETANIDE 1 MG TABLET PO SCH (07:54)
[2018-05-03] MEDS: DOLUTEGRAVIR SODIUM 50 MG TABLET PO SCH (07:54)
[2018-05-03] MEDS: ISOSORBIDE DINITRATE 10 MG TABLET PO SCH ×3 (07:54→20:08)
[2018-05-03] MEDS: FERROUS GLUCONATE 324 MG TABLET PO SCH (07:54)
[2018-05-03] MEDS: CARVEDILOL 6.25 MG TABLET PO SCH (07:54)
[2018-05-03] MEDS: GABAPENTIN 300 MG CAPSULE PO SCH ×2 (07:54→20:08)
[2018-05-03] MEDS: TAMSULOSIN HCL 0.4 MG CAPSULE PO SCH (07:54)
[2018-05-03] MEDS: COBICISTAT PO SCH (07:55)
[2018-05-03] MEDS: TENOFOVIR ALAFENAMIDE PO SCH (07:55)
[2018-05-03] MEDS: DARUNAVIR PO SCH (07:55)
[2018-05-03] MEDS: EMTRICITABINE PO SCH (07:55)
[2018-05-03] MEDS: MARAVIROC 150 MG PO SCH (07:56)
[2018-05-03] MEDS: COLD CREAM, SKIN EMOLLIENT 340 GM JAR TP SCH ×2 (07:57→20:12)
[2018-05-03 08:00] VITALS: BP 123/61
[2018-05-03] MEDS: POLYETHYLENE GLYCOL 3350 17 GM PACKET PO PRN (09:00)
[2018-05-03] MEDS: INSULIN LISPRO 100 UNITS/ML SQ PRN ×2 (09:02→12:50)
[2018-05-03 12:35] LABS: GLUCOMETER DEV NAME(LOC) 2WR.2; GLUCOSE,POINT OF CARE 166 MG/DL (70-110)
[2018-05-03 16:19] VITALS: BP 118/60
[2018-05-03] MEDS: SENNA 187 MG TABLET PO SCH (20:07)
[2018-05-03] MEDS: ATORVASTATIN CALCIUM 20 MG TABLET PO SCH (20:07)
[2018-05-04 05:30] VITALS: BP 110/60
[2018-05-04 07:10] VITALS: BP 108/64
[2018-05-04] MEDS: MULTIVITAMINS WITH MINERALS, THERAPEUTIC TABLET PO SCH (07:41)
[2018-05-04] MEDS: EMTRICITABINE PO SCH (07:42)
[2018-05-04] MEDS: ZINC SULFATE 220 MG CAPSULE PO SCH (07:42)
[2018-05-04] MEDS: DOLUTEGRAVIR SODIUM 50 MG TABLET PO SCH (07:42)
[2018-05-04] MEDS: MARAVIROC 150 MG PO SCH (07:42)
[2018-05-04] MEDS: COBICISTAT PO SCH (07:42)
[2018-05-04] MEDS: DOCUSATE SODIUM 250 MG CAPSULE PO SCH ×2 (07:42→20:31)
[2018-05-04] MEDS: BUMETANIDE 1 MG TABLET PO SCH (07:42)
[2018-05-04] MEDS: ASCORBIC ACID 500 MG TABLET PO SCH (07:42)
[2018-05-04] MEDS: TENOFOVIR ALAFENAMIDE PO SCH (07:42)
[2018-05-04] MEDS: FERROUS GLUCONATE 324 MG TABLET PO SCH (07:42)
[2018-05-04] MEDS: ISOSORBIDE DINITRATE 10 MG TABLET PO SCH ×3 (07:42→20:32)
[2018-05-04] MEDS: DARUNAVIR PO SCH (07:42)
[2018-05-04] MEDS: TAMSULOSIN HCL 0.4 MG CAPSULE PO SCH (07:42)
[2018-05-04] MEDS: ASPIRIN 81 MG EC TABLET PO SCH (07:43)
[2018-05-04] MEDS: COLD CREAM, SKIN EMOLLIENT 340 GM JAR TP SCH ×2 (07:44→20:31)
[2018-05-04] MEDS: GABAPENTIN 300 MG CAPSULE PO SCH ×2 (07:46→20:31)
[2018-05-04] MEDS ORDERED: ASPI-1182 PO (10:19)
[2018-05-04] MEDS ORDERED: ASCO500 PO (10:19)
[2018-05-04] MEDS ORDERED: ATOR20TA86 PO (10:20)
[2018-05-04] MEDS ORDERED: BUME1TAB17 PO (10:20)
[2018-05-04] MEDS ORDERED: CARV6 PO (10:23)
[2018-05-04] MEDS ORDERED: DOCU250C91 PO (10:28)
[2018-05-04] MEDS ORDERED: FERG325 PO (10:28)
[2018-05-04] MEDS ORDERED: GABA-531 PO (10:29)
[2018-05-04] MEDS ORDERED: ISOS10TA16 PO (10:29)
[2018-05-04] MEDS ORDERED: MULT-1239 PO (10:30)
[2018-05-04] MEDS ORDERED: ZINC220 PO (10:31)
[2018-05-04] MEDS ORDERED: POLY238P2 PO (10:33)
[2018-05-04 10:48] LABS: GLUCOMETER DEV NAME(LOC) 2WR.2; GLUCOSE,POINT OF CARE 133 MG/DL (70-110)
[2018-05-04 10:51] LABS: GLUCOMETER DEV NAME(LOC) 2WR.1; GLUCOSE,POINT OF CARE 126 MG/DL (70-110)
[2018-05-04 16:15] VITALS: BP 123/71
[2018-05-04 17:59] LABS: GLUCOMETER DEV NAME(LOC) 2WR.1; GLUCOSE,POINT OF CARE 169 MG/DL (70-110)
[2018-05-04] MEDS: SENNA 187 MG TABLET PO SCH (20:31)
[2018-05-04] MEDS: ATORVASTATIN CALCIUM 20 MG TABLET PO SCH (20:31)
[2018-05-04 21:29] LABS: GLUCOMETER DEV NAME(LOC) 2WR.2; GLUCOSE,POINT OF CARE 173 MG/DL (70-110)
[2018-05-05 05:00] VITALS: BP 115/63
[2018-05-05 05:50] LABS: GLUCOMETER DEV NAME(LOC) 2WR.2; GLUCOSE,POINT OF CARE 121 MG/DL (70-110)
[2018-05-05 08:55] VITALS: BP 123/67
[2018-05-05] MEDS ORDERED: CARVEDILOL 6.25 MG TABLET PO SCH (09:00)
[2018-05-05] MEDS: COBICISTAT PO SCH (09:08)
[2018-05-05] MEDS: DOCUSATE SODIUM 250 MG CAPSULE PO SCH (09:08)
[2018-05-05] MEDS: MULTIVITAMINS WITH MINERALS, THERAPEUTIC TABLET PO SCH (09:08)
[2018-05-05] MEDS: TAMSULOSIN HCL 0.4 MG CAPSULE PO SCH (09:08)
[2018-05-05] MEDS: DARUNAVIR PO SCH (09:08)
[2018-05-05] MEDS: FERROUS GLUCONATE 324 MG TABLET PO SCH (09:08)
[2018-05-05] MEDS: BUMETANIDE 1 MG TABLET PO SCH (09:09)
[2018-05-05] MEDS: MARAVIROC 150 MG PO SCH (09:09)
[2018-05-05] MEDS: DOLUTEGRAVIR SODIUM 50 MG TABLET PO SCH (09:10)
[2018-05-05] MEDS: ASPIRIN 81 MG EC TABLET PO SCH (09:10)
[2018-05-05] MEDS: ZINC SULFATE 220 MG CAPSULE PO SCH (09:11)
[2018-05-05] MEDS: ASCORBIC ACID 500 MG TABLET PO SCH (09:11)
[2018-05-05] MEDS: ISOSORBIDE DINITRATE 10 MG TABLET PO SCH (09:11)
[2018-05-05] MEDS: GABAPENTIN 300 MG CAPSULE PO SCH (09:11)
[2018-05-05] MEDS: TENOFOVIR ALAFENAMIDE PO SCH (09:12)
[2018-05-05] MEDS: EMTRICITABINE PO SCH (09:12)
[2018-05-05] MEDS: COLD CREAM, SKIN EMOLLIENT 340 GM JAR TP SCH (09:20)
[2018-05-05 10:05] VITALS: BP 107/51
== END 2018-05-05 13:45 | disposition home or self-care (01) | DRG 299 ==
LOC: 2WR 19:35
PROVIDERS: ADMIT Physical Medicine & Rehabilitation; ATTEND Physical Medicine & Rehabilitation
DX: E11.52 Type 2 diabetes mellitus with diabetic peripheral angiopathy with gangrene (principal); E43 Unspecified severe protein-calorie malnutrition; I96 Gangrene, not elsewhere classified; Z68.1 Body mass index [BMI] 19.9 or less, adult; E11.22 Type 2 diabetes mellitus with diabetic chronic kidney disease; F17.200 Nicotine dependence, unspecified, uncomplicated; I12.9 Hypertensive chronic kidney disease with stage 1 through stage 4 chronic kidney disease, or unspecified chronic kidney disease; I48.91 Unspecified atrial fibrillation; K74.60 Unspecified cirrhosis of liver; N18.9 Chronic kidney disease, unspecified; Z80.0 Family history of malignant neoplasm of digestive organs; Z82.49 Family history of ischemic heart disease and other diseases of the circulatory system; Z83.3 Family history of diabetes mellitus; Z89.612 Acquired absence of left leg above knee
CPT/HCPCS: 83036; 83735; 84100; 87081; 92507; 92508; 92526; 92610; 93005; 93971; 97110; 97112; 97116; 97150; 97162; 97166; 97530; 97535; 99366

== ENCOUNTER → 2018-05-09 | Outpatient (CLI) | payer MEDICARE, MEDICAID ==
[~2018-05-09] VITALS: Ht 193 cm; Wt 53.5 kg
[~2018-05-09] MED LIST: ASCO500 PO; ASPI-1182 PO; ATOR20TA86 PO; BUME1TAB17 PO; CARV6 PO; DARU1TAB PO; DOCU250C91 PO; DOLU50TA PO; EMTR1TAB13 PO; FERG325 PO; GABA-531 PO; ISOS10TA16 PO; MARA150T PO; MULT-1239 PO; TAMS0.4C32 PO; ZINC220 PO
[2018-05-09 10:10] VITALS: BP 127/71
[2018-05-09 12:55] LABS: BASOPHILS % (AUTO) 0.8 % (0.0-2.0); EOSINOPHILS % (AUTO) 1.1 % (1.0-6.0); HEMOGLOBIN 11.3 g/dL (13.5-17.5); LYMPHOCYTES # (AUTO) 1.6 K/uL (1.0-4.8); LYMPHOCYTES % (AUTO) 32.8 % (22.0-44.0); MEAN CORPUSCULAR HEMOGLOBIN 26.7 pg (26.0-34.0); MEAN CORPUSCULAR HGB CONC 32.2 G/dL (31.0-37.0); MEAN CORPUSCULAR VOLUME 83 fL (80-100); MONOCYTES # (AUTO) 0.5 K/uL (0.1-1.0); MONOCYTES % (AUTO) 9.5 % (2.0-9.0); NEUTROPHILS # (AUTO) 2.7 K/uL (1.8-7.7); NEUTROPHILS % (AUTO) 55.8 % (40.0-70.0); PLATELET COUNT (AUTO) 147 K/uL (150-450); RED BLOOD CELL COUNT(AUTO) 4.21 MIL/uL (4.50-5.90)
[2018-05-09 13:12] LABS: ALANINE AMINOTRANSFERASE 28 U/L (12-78); ALBUMIN 3.2 g/dL (3.4-5.0); ALKALINE PHOSPHATASE 111 U/L (46-116); ASPARTATE AMINOTRANSFERASE 37 U/L (15-37); BILIRUBIN,TOTAL 0.7 mg/dL (0.1-1.0); C-REACTIVE PROTEIN QUANT 0.58 mg/dL (0.00-0.30); CALCIUM, TOTAL 9.4 mg/dL (8.8-10.5); CHLORIDE 102 mmol/L (98-107); CREATININE 1.34 mg/dL (0.60-1.30); GLOMERULAR FILTR. RATE CALC > 60 mL/min (>60); GLUCOSE,RANDOM 115 mg/dL (70-110); POTASSIUM 4.8 mmol/L (3.5-5.1); SODIUM SERUM 139 mmol/L (136-145); TOTAL PROTEIN, SERUM 7.3 g/dL (6.4-8.2); UREA NITROGEN, BLOOD 31 mg/dL (7-18)
[2018-05-09 13:25] LABS: ANION GAP 7 mmol/L (8-16); CARBON DIOXIDE 30 mmol/L (22-29)
[2018-05-09 13:46] LABS: ERYTHROCYTE SEDIMENTATION RATE 27 MM/HR (0-15)
== END | disposition home or self-care (01) ==
LOC: HBOWC 09:48
PROVIDERS: ATTEND Internal Medicine
DX: E11.622 Type 2 diabetes mellitus with other skin ulcer (principal); L89.159 Pressure ulcer of sacral region, unspecified stage
CPT/HCPCS: 72220; 84134; 85651; 86140

== ENCOUNTER → 2018-05-16 | Outpatient (CLI) | payer MEDICARE, MEDICAID ==
[2018-05-16 10:06] VITALS: BP 130/71
== END | disposition home or self-care (01) ==
LOC: HBOWC 09:46
PROVIDERS: ATTEND Internal Medicine
DX: E11.622 Type 2 diabetes mellitus with other skin ulcer (principal); L89.150 Pressure ulcer of sacral region, unstageable; L98.492 Non-pressure chronic ulcer of skin of other sites with fat layer exposed; L98.412 Non-pressure chronic ulcer of buttock with fat layer exposed; E43 Unspecified severe protein-calorie malnutrition; E11.52 Type 2 diabetes mellitus with diabetic peripheral angiopathy with gangrene; I96 Gangrene, not elsewhere classified; D64.9 Anemia, unspecified; I25.2 Old myocardial infarction; I48.91 Unspecified atrial fibrillation; L90.9 Atrophic disorder of skin, unspecified; E11.22 Type 2 diabetes mellitus with diabetic chronic kidney disease; I12.9 Hypertensive chronic kidney disease with stage 1 through stage 4 chronic kidney disease, or unspecified chronic kidney disease; N18.9 Chronic kidney disease, unspecified; F17.200 Nicotine dependence, unspecified, uncomplicated; Z68.1 Body mass index [BMI] 19.9 or less, adult; Z87.01 Personal history of pneumonia (recurrent); K74.60 Unspecified cirrhosis of liver; Z79.82 Long term (current) use of aspirin; Z89.612 Acquired absence of left leg above knee
CPT/HCPCS: 11042

== ENCOUNTER → 2018-05-23 | Outpatient (CLI) | payer MEDICARE, MEDICAID ==
[2018-05-23 10:00] VITALS: BP 118/65
== END | disposition home or self-care (01) ==
LOC: HBOWC 09:47
PROVIDERS: ATTEND Internal Medicine
DX: E11.622 Type 2 diabetes mellitus with other skin ulcer (principal); L89.153 Pressure ulcer of sacral region, stage 3; L98.495 Non-pressure chronic ulcer of skin of other sites with muscle involvement without evidence of necrosis; L98.412 Non-pressure chronic ulcer of buttock with fat layer exposed; E11.52 Type 2 diabetes mellitus with diabetic peripheral angiopathy with gangrene; I96 Gangrene, not elsewhere classified; E43 Unspecified severe protein-calorie malnutrition; D64.9 Anemia, unspecified; I25.2 Old myocardial infarction; I48.91 Unspecified atrial fibrillation; E11.22 Type 2 diabetes mellitus with diabetic chronic kidney disease; I12.9 Hypertensive chronic kidney disease with stage 1 through stage 4 chronic kidney disease, or unspecified chronic kidney disease; N18.9 Chronic kidney disease, unspecified; K74.60 Unspecified cirrhosis of liver; F17.200 Nicotine dependence, unspecified, uncomplicated; Z87.01 Personal history of pneumonia (recurrent); Z79.82 Long term (current) use of aspirin; Z79.84 Long term (current) use of oral hypoglycemic drugs; Z89.612 Acquired absence of left leg above knee; Z68.1 Body mass index [BMI] 19.9 or less, adult
CPT/HCPCS: 11042; 97605

== ENCOUNTER → 2018-05-30 | Outpatient (CLI) | payer MEDICARE, MEDICAID ==
[2018-05-30 10:00] VITALS: BP 165/92
== END | disposition home or self-care (01) ==
LOC: HBOWC 09:24
PROVIDERS: ATTEND Internal Medicine
DX: E11.622 Type 2 diabetes mellitus with other skin ulcer (principal); L89.153 Pressure ulcer of sacral region, stage 3; L98.412 Non-pressure chronic ulcer of buttock with fat layer exposed; L98.495 Non-pressure chronic ulcer of skin of other sites with muscle involvement without evidence of necrosis; E11.52 Type 2 diabetes mellitus with diabetic peripheral angiopathy with gangrene; I96 Gangrene, not elsewhere classified; E43 Unspecified severe protein-calorie malnutrition; D64.9 Anemia, unspecified; I25.2 Old myocardial infarction; I48.91 Unspecified atrial fibrillation; E11.22 Type 2 diabetes mellitus with diabetic chronic kidney disease; I12.9 Hypertensive chronic kidney disease with stage 1 through stage 4 chronic kidney disease, or unspecified chronic kidney disease; N18.9 Chronic kidney disease, unspecified; K74.60 Unspecified cirrhosis of liver; F17.200 Nicotine dependence, unspecified, uncomplicated; Z79.84 Long term (current) use of oral hypoglycemic drugs; Z79.82 Long term (current) use of aspirin; Z68.1 Body mass index [BMI] 19.9 or less, adult; Z89.612 Acquired absence of left leg above knee
CPT/HCPCS: 11042; 97605

== ENCOUNTER → 2018-06-07 | Outpatient (CLI) | payer MEDICARE, MEDICAID ==
[2018-06-07 10:00] VITALS: BP 104/64
== END | disposition home or self-care (01) ==
LOC: HBOWC 09:49
PROVIDERS: ATTEND Nurse Practitioner Adult Health
DX: E11.622 Type 2 diabetes mellitus with other skin ulcer (principal); L89.153 Pressure ulcer of sacral region, stage 3; L98.495 Non-pressure chronic ulcer of skin of other sites with muscle involvement without evidence of necrosis; E11.52 Type 2 diabetes mellitus with diabetic peripheral angiopathy with gangrene; I96 Gangrene, not elsewhere classified; I25.2 Old myocardial infarction; I48.91 Unspecified atrial fibrillation; L90.9 Atrophic disorder of skin, unspecified; E43 Unspecified severe protein-calorie malnutrition; D64.9 Anemia, unspecified; E11.22 Type 2 diabetes mellitus with diabetic chronic kidney disease; I12.9 Hypertensive chronic kidney disease with stage 1 through stage 4 chronic kidney disease, or unspecified chronic kidney disease; N18.9 Chronic kidney disease, unspecified; K74.60 Unspecified cirrhosis of liver; Z68.1 Body mass index [BMI] 19.9 or less, adult; F17.200 Nicotine dependence, unspecified, uncomplicated; Z79.82 Long term (current) use of aspirin; Z79.84 Long term (current) use of oral hypoglycemic drugs; Z89.612 Acquired absence of left leg above knee
CPT/HCPCS: 97605

== ENCOUNTER → 2018-06-13 | Outpatient (CLI) | payer MEDICARE, MEDICAID ==
[~2018-06-13] MED LIST changes: +LIDOCAINE 2% 5 ML JELLY TP ONE
[2018-06-13 10:00] VITALS: BP 107/50
== END | disposition home or self-care (01) ==
LOC: HBOWC 09:45
PROVIDERS: ATTEND Internal Medicine
DX: E11.622 Type 2 diabetes mellitus with other skin ulcer (principal); L89.153 Pressure ulcer of sacral region, stage 3; L98.495 Non-pressure chronic ulcer of skin of other sites with muscle involvement without evidence of necrosis; E11.52 Type 2 diabetes mellitus with diabetic peripheral angiopathy with gangrene; I25.2 Old myocardial infarction; I48.91 Unspecified atrial fibrillation; I96 Gangrene, not elsewhere classified; L90.9 Atrophic disorder of skin, unspecified; E43 Unspecified severe protein-calorie malnutrition; D64.9 Anemia, unspecified; E11.22 Type 2 diabetes mellitus with diabetic chronic kidney disease; I12.9 Hypertensive chronic kidney disease with stage 1 through stage 4 chronic kidney disease, or unspecified chronic kidney disease; N18.9 Chronic kidney disease, unspecified; K74.60 Unspecified cirrhosis of liver; F17.200 Nicotine dependence, unspecified, uncomplicated; Z68.1 Body mass index [BMI] 19.9 or less, adult; Z79.84 Long term (current) use of oral hypoglycemic drugs; Z79.82 Long term (current) use of aspirin; Z89.612 Acquired absence of left leg above knee
CPT/HCPCS: 11042; 97605

== ENCOUNTER → 2018-06-20 | Outpatient (CLI) | payer MEDICARE, MEDICAID ==
[~2018-06-20] MED LIST changes: -LIDOCAINE 2% 5 ML JELLY TP ONE
[2018-06-20 10:00] VITALS: BP 142/84
== END | disposition home or self-care (01) ==
LOC: HBOWC 09:37
PROVIDERS: ATTEND Internal Medicine
DX: E11.622 Type 2 diabetes mellitus with other skin ulcer (principal); L89.153 Pressure ulcer of sacral region, stage 3; L98.495 Non-pressure chronic ulcer of skin of other sites with muscle involvement without evidence of necrosis; E11.52 Type 2 diabetes mellitus with diabetic peripheral angiopathy with gangrene; I96 Gangrene, not elsewhere classified; L90.9 Atrophic disorder of skin, unspecified; E43 Unspecified severe protein-calorie malnutrition; D64.9 Anemia, unspecified; I25.2 Old myocardial infarction; I48.91 Unspecified atrial fibrillation; E11.22 Type 2 diabetes mellitus with diabetic chronic kidney disease; I12.9 Hypertensive chronic kidney disease with stage 1 through stage 4 chronic kidney disease, or unspecified chronic kidney disease; N18.9 Chronic kidney disease, unspecified; K74.60 Unspecified cirrhosis of liver; Z79.84 Long term (current) use of oral hypoglycemic drugs; F17.200 Nicotine dependence, unspecified, uncomplicated; Z79.82 Long term (current) use of aspirin; Z68.1 Body mass index [BMI] 19.9 or less, adult; Z89.612 Acquired absence of left leg above knee
CPT/HCPCS: 11042; 97605

== ENCOUNTER → 2018-06-26 | Outpatient (CLI) | payer MEDICARE, MEDICAID ==
[2018-06-26 10:10] VITALS: BP 144/76
== END | disposition home or self-care (01) ==
LOC: HBOWC 09:56
PROVIDERS: ATTEND Emergency Medicine
DX: E11.622 Type 2 diabetes mellitus with other skin ulcer (principal); L89.153 Pressure ulcer of sacral region, stage 3; L98.495 Non-pressure chronic ulcer of skin of other sites with muscle involvement without evidence of necrosis; E11.52 Type 2 diabetes mellitus with diabetic peripheral angiopathy with gangrene; I96 Gangrene, not elsewhere classified; I25.2 Old myocardial infarction; L90.9 Atrophic disorder of skin, unspecified; I48.91 Unspecified atrial fibrillation; D64.9 Anemia, unspecified; E11.22 Type 2 diabetes mellitus with diabetic chronic kidney disease; I12.9 Hypertensive chronic kidney disease with stage 1 through stage 4 chronic kidney disease, or unspecified chronic kidney disease; N18.9 Chronic kidney disease, unspecified; K74.60 Unspecified cirrhosis of liver; E43 Unspecified severe protein-calorie malnutrition; F17.200 Nicotine dependence, unspecified, uncomplicated; Z79.82 Long term (current) use of aspirin; Z87.01 Personal history of pneumonia (recurrent); Z68.1 Body mass index [BMI] 19.9 or less, adult; Z79.84 Long term (current) use of oral hypoglycemic drugs; Z89.612 Acquired absence of left leg above knee
CPT/HCPCS: 11042; 97605

== ENCOUNTER → 2018-07-04 | Outpatient (CLI) | payer MEDICARE, MEDICAID ==
[2018-07-04 10:00] VITALS: BP 139/85
== END | disposition home or self-care (01) ==
LOC: HBOWC 09:43
PROVIDERS: ATTEND Internal Medicine
DX: E11.622 Type 2 diabetes mellitus with other skin ulcer (principal); L89.153 Pressure ulcer of sacral region, stage 3; L98.495 Non-pressure chronic ulcer of skin of other sites with muscle involvement without evidence of necrosis; E11.52 Type 2 diabetes mellitus with diabetic peripheral angiopathy with gangrene; I96 Gangrene, not elsewhere classified; I25.2 Old myocardial infarction; L90.9 Atrophic disorder of skin, unspecified; I48.91 Unspecified atrial fibrillation; D64.9 Anemia, unspecified; E11.22 Type 2 diabetes mellitus with diabetic chronic kidney disease; I12.9 Hypertensive chronic kidney disease with stage 1 through stage 4 chronic kidney disease, or unspecified chronic kidney disease; N18.9 Chronic kidney disease, unspecified; K74.60 Unspecified cirrhosis of liver; E43 Unspecified severe protein-calorie malnutrition; F17.200 Nicotine dependence, unspecified, uncomplicated; Z79.82 Long term (current) use of aspirin; Z87.01 Personal history of pneumonia (recurrent); Z68.1 Body mass index [BMI] 19.9 or less, adult; Z79.84 Long term (current) use of oral hypoglycemic drugs; Z89.612 Acquired absence of left leg above knee
CPT/HCPCS: 11042

== ENCOUNTER → 2018-07-11 | Outpatient (CLI) | payer MEDICARE, MEDICAID ==
[2018-07-11 10:11] VITALS: BP 90/60
[2018-07-11 11:37] VITALS: BP 90/60
== END | disposition home or self-care (01) ==
LOC: HBOWC 09:37
PROVIDERS: ATTEND Internal Medicine
DX: E11.622 Type 2 diabetes mellitus with other skin ulcer (principal); L89.153 Pressure ulcer of sacral region, stage 3; L98.495 Non-pressure chronic ulcer of skin of other sites with muscle involvement without evidence of necrosis; E11.52 Type 2 diabetes mellitus with diabetic peripheral angiopathy with gangrene; I96 Gangrene, not elsewhere classified; E43 Unspecified severe protein-calorie malnutrition; D64.9 Anemia, unspecified; I25.2 Old myocardial infarction; I48.91 Unspecified atrial fibrillation; E11.22 Type 2 diabetes mellitus with diabetic chronic kidney disease; I12.9 Hypertensive chronic kidney disease with stage 1 through stage 4 chronic kidney disease, or unspecified chronic kidney disease; N18.9 Chronic kidney disease, unspecified; K74.60 Unspecified cirrhosis of liver; F17.200 Nicotine dependence, unspecified, uncomplicated; Z79.84 Long term (current) use of oral hypoglycemic drugs; Z79.82 Long term (current) use of aspirin; Z68.1 Body mass index [BMI] 19.9 or less, adult; Z89.612 Acquired absence of left leg above knee

== ENCOUNTER → 2018-07-25 | Outpatient (CLI) | payer MEDICARE, MEDICAID ==
[2018-07-25 10:10] VITALS: BP 141/89
== END | disposition home or self-care (01) ==
LOC: HBOWC 09:57
PROVIDERS: ATTEND Internal Medicine
DX: E11.622 Type 2 diabetes mellitus with other skin ulcer (principal); L89.153 Pressure ulcer of sacral region, stage 3; L98.495 Non-pressure chronic ulcer of skin of other sites with muscle involvement without evidence of necrosis; E11.52 Type 2 diabetes mellitus with diabetic peripheral angiopathy with gangrene; I96 Gangrene, not elsewhere classified; L84 Corns and callosities; J18.9 Pneumonia, unspecified organism; J96.01 Acute respiratory failure with hypoxia; E43 Unspecified severe protein-calorie malnutrition; I25.2 Old myocardial infarction; I48.91 Unspecified atrial fibrillation; E11.22 Type 2 diabetes mellitus with diabetic chronic kidney disease; I12.9 Hypertensive chronic kidney disease with stage 1 through stage 4 chronic kidney disease, or unspecified chronic kidney disease; N18.9 Chronic kidney disease, unspecified; D64.9 Anemia, unspecified; F17.200 Nicotine dependence, unspecified, uncomplicated; Z68.1 Body mass index [BMI] 19.9 or less, adult; Z79.82 Long term (current) use of aspirin; Z79.84 Long term (current) use of oral hypoglycemic drugs; K74.60 Unspecified cirrhosis of liver; Z89.612 Acquired absence of left leg above knee